=== PATIENT | male | born 1985 | race Caucasian/White ===

== ENCOUNTER 2018-04-22 09:59 | Emergency (ER) | payer OTHER ==
[2018-04-22 10:22] VITALS: BP 120/79; PULSE 86; RESP 12; TEMP 99.1; O2SAT 99
[2018-04-22] MEDS ORDERED: Naproxen 550 mg Tab PO STA (10:31)
[2018-04-22] MEDS ORDERED: Naproxen 550 mg Tab PO ONE (10:41)
--- NOTE | 2018-04-22 10:56 | C.PDOC ---
History Of Present Illness 32yo male, no known past medical history, comes to ER for evaluation of left shoulder pain x 1 week. Patient reports lifting heavy objects at work and otherwise denies any known trauma or injuries. He denies any weakness, numbness , chest pain, and offers no additional medical complaints. Time Seen by Provider: 04/22/18 10:28 Chief Complaint (Nursing): Upper Extremity Problem/Injury History Per: Patient History/Exam Limitations: no limitations Onset/Duration Of Symptoms: Days Current Symptoms Are (Timing): Still Present Quality: "Pain" Exacerbating Factor(s): Strenuous Use Of Affected Area Past Medical History Reviewed: Historical Data, Nursing Documentation, Vital Signs Vital Signs: Last Vital Signs Temp 99.1 F 04/22/18 10:20 Pulse 86 04/22/18 10:20 Resp 12 04/22/18 10:20 BP 120/79 04/22/18 10:20 Pulse Ox 99 04/22/18 11:09 - Medical History PMH: No Chronic Diseases Surgical History: No Surg Hx Family History: States: No Known Family Hx - Social History Hx Alcohol Use: Yes Hx Substance Use: Yes - Immunization History Hx Influenza Vaccination: No Hx Pneumococcal Vaccination: No Review Of Systems Except As Marked, All Systems Reviewed And Found Negative. Constitutional: Negative for: Fever, Chills Cardiovascular: Negative for: Chest Pain Musculoskeletal: Positive for: Shoulder Pain (left) Neurological: Negative for: Weakness, Numbness Physical Exam - Physical Exam Appears: Non-toxic, No Acute Distress Skin: Normal Color Head: Atraumatic, Normacephalic Eye(s): bilateral: Normal Inspection Neck: Supple Chest: Symmetrical Cardiovascular: Rhythm Regular Respiratory: Normal Breath Sounds Extremity: No Normal ROM (+Left shoulder pain with abduction), Tenderness ( tenderness to palpation of left shoulder) ED Course And Treatment O2 Sat by Pulse Oximetry: 99 (RA) Pulse Ox Interpretation: Normal Progress Note: XR left shoulder ordered. Patient given Naproxen for pain. 1055 XR reviewed, no fractures or dislocations noted. Patient stable for d/c home. Medical Decision Making Medical Decision Making: xr neg pain improved. suspect rotator cuff injury vs frozen shoulder given sling , advise outpt fu. Disposition - Disposition Referrals: [facility] [place] [Outside] [facility] [Outside] [facility] [Outside] Disposition: HOME/ ROUTINE Disposition Time: 10:55 Condition: STABLE Additional Instructions: follow up with your doctor/clinic and specialist. return to er with worsening symptoms or concerns. Prescriptions: Naproxen 500 mg PO BID PRN #14 tab PRN Reason: Pain, Mild (1-3) Instructions: Shoulder Sprain Forms: [facility] (Yoruba), Work Excuse - Clinical Impression Clinical Impression: Shoulder sprain - Scribe Statement The provider has reviewed the documentation as recorded by the Ericka Snider Provider Attestation: All medical record entries made by the rEicka were at my direction and personally dictated by me. I have reviewed the chart and agree that the record accurately reflects my personal performance of the history, physical exam, medical decision making, and the department course for this patient. I have also personally directed, reviewed, and agree with the discharge instructions and disposition.
--- NOTE | 2018-04-22 11:29 | RAD ---
Date of service: 04/22/2018 PROCEDURE: Radiographs of the Left Shoulder HISTORY: pain COMPARISON: No prior. FINDINGS: BONES: Greater tuberosity mild subchondral sclerosis. No fracture. JOINTS: . Glenohumeral and acromioclavicular minimal osteoarthritis. SOFT TISSUES: Normal. OTHER FINDINGS: None. IMPRESSION: . Glenohumeral and acromioclavicular minimal osteoarthritis. No fracture or lytic lesion.
== END 2018-04-22 11:02 | disposition home or self-care (01) ==
LOC: C.ER 09:59
DX: S43.402A Unspecified sprain of left shoulder joint, initial encounter (principal); X50.0XXA Overexertion from strenuous movement or load, initial encounter